=== PATIENT | male | born 1970 | race Caucasian/White ===

== ENCOUNTER 2020-05-23 06:40 | Day surgery (SDC) | payer OTHER ==
[~2020-05-23] VITALS: Ht 177.8 cm; Wt 72.3 kg
[~2020-05-23 06:40] MED LIST: BISMATROL262 MG/15 PO; DEXL60CA3 PO; OMEP20ER PO; PROM25 PO; Tetracycline H500 MG
--- NOTE | 2020-05-23 07:08 | NUR ---
05/23/20 0708 Erika Higuera 1 TRY RIGHT HAND VALVE
== END 2020-05-23 09:04 | disposition home or self-care (01) ==
LOC: ORSCSDS 06:40
PROVIDERS: Student in an Organized Health Care Education/Training Program
PROC: 0DBL8ZX Excision of Transverse Colon, Via Natural or Artificial Opening Endoscopic, Diagnostic (ICD-10-PCS; principal; 2020-05-23 08:00)
PROC: 0DBN8ZX Excision of Sigmoid Colon, Via Natural or Artificial Opening Endoscopic, Diagnostic (ICD-10-PCS; principal; 2020-05-23 08:00)
DX: Z12.11 Encounter for screening for malignant neoplasm of colon (principal); D12.3 Benign neoplasm of transverse colon; D12.5 Benign neoplasm of sigmoid colon; K64.8 Other hemorrhoids; K64.4 Residual hemorrhoidal skin tags; F17.210 Nicotine dependence, cigarettes, uncomplicated; E78.5 Hyperlipidemia, unspecified; K21.9 Gastro-esophageal reflux disease without esophagitis; Z79.899 Other long term (current) drug therapy
CPT/HCPCS: 88305; J0330; J0461; J2405; J2704